=== PATIENT | male | born 1990 | race Two or more races ===

== ENCOUNTER → 2024-02-10 | Emergency (ER) | payer OTHER ==
[~2024-02-10] VITALS: Ht 185.4 cm; Wt 134.3 kg
[~2024-02-10] MED LIST: CEPHALEXIN750 MG PO; KETO10TA2 PO; PEPCID AC20 MG PO
[2024-02-10 11:47] VITALS: BP 116/80
== END | disposition home or self-care (01) ==
LOC: ER 10:58
DX: L02.519 Cutaneous abscess of unspecified hand (principal)

== ENCOUNTER 2024-03-06 20:31 | Emergency (ER) | payer OTHER ==
[~2024-03-06] VITALS: Ht 185.4 cm; Wt 117.9 kg
[2024-03-06] MEDS ORDERED: KETOROLAC TROMETHAMINE 60 MG VIAL IM ONE (22:45)
[2024-03-06] MEDS ORDERED: DEXAMETHASONE SODIUM PHOSPHATE 4 MG/ML VIAL IM ONE (22:45)
== END 2024-03-07 00:35 | disposition home or self-care (01) ==
LOC: ER 20:33
DX: M54.50 Low back pain, unspecified (principal); B34.9 Viral infection, unspecified; J45.909 Unspecified asthma, uncomplicated
CPT/HCPCS: 36415; 96372; 99282; J1100; J1885

== ENCOUNTER 2024-07-08 15:46 | Emergency (ER) | payer OTHER ==
[~2024-07-08] VITALS: Ht 185.4 cm; Wt 145.1 kg
[2024-07-08] MEDS ORDERED: IPRATROPIUM/ALBUTEROL SULFATE 3 ML AMPUL.NEB IH SCH (18:15)
[2024-07-08] MEDS ORDERED: METHYLPREDNISOLONE SOD SUCC 125 MG VIAL IV ONE (18:15)
[2024-07-08] MEDS ORDERED: GUAIFENESIN/DEXTROMETHORPHAN 100MG/10ML BLIST.PACK PO ONE ×2 (18:15→18:25)
[2024-07-08] MEDS ORDERED: METHYLPREDNISOLONE SOD SUCC 125 MG VIAL ONE (18:25)
[2024-07-08 19:39] LABS: HEMATOCRIT 49.6 % (39.0-48.0); HEMOGLOBIN 16.9 g/dL (13-16.00); MEAN CELL VOLUME 87.9 fL (80.0-100.00); MEAN CORPUSCULAR HGB CONC 34.1 g/dl (32.0-36.0); PLATELET COUNT 230 K/uL (150-450); RED BLOOD COUNT 5.64 M/uL (4.00-6.00); RED CELL DISTRIBUTION WIDTH 13.4 % (11.5-14.5)
[2024-07-08] MEDS ORDERED: IPRATROPIUM/ALBUTEROL SULFATE 3 ML AMPUL.NEB IH ONE ×2 (20:40→20:41)
[2024-07-08] MEDS ORDERED: SINGULAIR10 MG PO (23:47)
[2024-07-08] MEDS ORDERED: IPRAT-ALBUT 0.5-3 ML IH (23:47)
[2024-07-08] MEDS ORDERED: VENTOLIN HFA18 GM IH (23:47)
[2024-07-08] MEDS ORDERED: AMOX1TAB5 PO (23:47)
== END 2024-07-09 00:44 | disposition home or self-care (01) ==
LOC: ER 15:49
PROVIDERS: General Practice
DX: R53.81 Other malaise (principal); J00 Acute nasopharyngitis [common cold]; Z20.822 Contact with and (suspected) exposure to COVID-19

== ENCOUNTER 2024-07-12 01:26 | Emergency (ER) | payer OTHER ==
[~2024-07-12] VITALS: Ht 185.4 cm; Wt 136.1 kg
[~2024-07-12 01:26] MED LIST changes: +AMOX1TAB5 PO; +IPRAT-ALBUT 0.5-3 ML IH; +SINGULAIR10 MG PO; +VENTOLIN HFA18 GM IH
[2024-07-12] MEDS ORDERED: PROMETHAZINE HCL 25 MG/ML AMPUL IM STA (04:26)
[2024-07-12] MEDS ORDERED: KETOROLAC TROMETHAMINE 60 MG VIAL IM STA (04:26)
[2024-07-12] MEDS ORDERED: HYDROCODONE/CHLORPHEN P-STIREX 5 ML ML PO STA (04:27)
[2024-07-12] MEDS ORDERED: PROMETHAZINE HCL 25 MG/ML AMPUL ONE (04:33)
[2024-07-12] MEDS ORDERED: KETOROLAC TROMETHAMINE 60 MG VIAL IM ONE (04:33)
== END 2024-07-12 04:42 | disposition home or self-care (01) ==
LOC: ER 01:28
DX: J06.9 Acute upper respiratory infection, unspecified (principal)
CPT/HCPCS: 96372; 99282; J1885; J2250

== ENCOUNTER 2024-09-22 09:13 | Emergency (ER) | payer OTHER ==
[~2024-09-22] VITALS: Ht 185.4 cm; Wt 140.6 kg
[2024-09-22 09:47] VITALS: BP 104/70; O2SAT 98
[2024-09-22] MEDS ORDERED: FAMOtidine 10 MG/ML (4ML VIAL) IV PUSH ONE (10:00)
[2024-09-22] MEDS ORDERED: METHYLPREDNISOLONE SOD SUCC 40 MG VIAL IM ONE (10:00)
[2024-09-22] MEDS ORDERED: CETIRIZINE HCL 5 MG/5 ML ML PO ONE (10:00)
[2024-09-22] MEDS ORDERED: MONTELUKAST SODIUM 10 MG TABLET PO ONE (10:00)
[2024-09-22] MEDS ORDERED: CEFTRIAXONE SODIUM 1,000 MG VIAL IM ONE (10:00)
[2024-09-22] MEDS ORDERED: FAMOTIDINE/PF 20 MG/2 ML VIAL ONE (10:14)
[2024-09-22] MEDS ORDERED: CEFTRIAXONE SODIUM 1,000 MG VIAL ONE (10:14)
[2024-09-22] MEDS ORDERED: METHYLPREDNISOLONE SOD SUCC 40 MG VIAL ONE (10:14)
[2024-09-22] MEDS ORDERED: CETIRIZINE HCL 5MG/5ML BLIST.PACK PO ONE (10:14)
[2024-09-22] MEDS ORDERED: LIDOCAINE HCL 1% 10ML VIAL ONE (10:19)
[2024-09-22 11:00] LABS: BASO % 0.4 % (0.1-1.2); EOS # 0.45 (0.04-0.54); EOS % 3.2 % (0.7-7.0); HEMATOCRIT 47.1 % (40.1-51.0); HEMOGLOBIN 16.2 g/dL (13.7-17.5); LYMPH % 22.9 % (19.3-53.1); MEAN CORPUSCULAR HEMOGLOBIN 29.4 pg (25.6-32.2); MONO # 0.79 (0.24-0.82); MONO % 5.7 % (4.7-12.5); NEUT # 9.39 (1.56-6.13); NEUT % 67.3 % (34.0-71.1); PLATELET COUNT 284 K/uL (163-369); RED BLOOD COUNT 5.51 M/uL (4.63-6.08); RED CELL DISTRIBUTION WIDTH 13.3 % (11.6-14.4)
[2024-09-22 11:39] LABS: COVID-19 AG NEGATIVE (NEGATIVE)
[2024-09-22 11:40] LABS: INFLUENZA A AG NEGATIVE (NEGATIVE); INFLUENZA B AG NEGATIVE (NEGATIVE)
[2024-09-22] MEDS ORDERED: AZITHROMYCIN500 MG PO (11:45)
[2024-09-22] MEDS ORDERED: BENZONATATE200 M1 PO (11:45)
== END 2024-09-22 12:04 | disposition home or self-care (01) ==
LOC: ER 09:23
PROVIDERS: General Practice
DX: J02.9 Acute pharyngitis, unspecified (principal); Z20.822 Contact with and (suspected) exposure to COVID-19; Z87.09 Personal history of other diseases of the respiratory system

== ENCOUNTER 2024-12-10 08:28 | Emergency (ER) | payer OTHER ==
[~2024-12-10] VITALS: Ht 185.4 cm; Wt 158.8 kg
[~2024-12-10 08:28] MED LIST changes: +AZITHROMYCIN500 MG PO; +BENZONATATE200 M1 PO
[2024-12-10 10:47] LABS: COVID-19 AG NEGATIVE (NEGATIVE)
[2024-12-10 11:01] LABS: BASO % 0.5 % (0.1-1.2); EOS # 0.46 (0.04-0.54); EOS % 3.0 % (0.7-7.0); LYMPH # 2.72 (1.18-3.74); LYMPH % 17.9 % (19.3-53.1); MEAN PLATELET VOLUME 10.70 fl (9.4-12.4); MONO # 0.84 (0.24-0.82); MONO % 5.5 % (4.7-12.5); NEUT # 11.01 (1.56-6.13); NEUT % 72.4 % (34.0-71.1); RED CELL DISTRIBUTION WIDTH 13.0 % (11.6-14.4)
== END 2024-12-10 11:53 ==
LOC: ER 08:28
PROVIDERS: General Practice
DX: B34.9 Viral infection, unspecified (principal); J45.909 Unspecified asthma, uncomplicated; J03.80 Acute tonsillitis due to other specified organisms; J01.00 Acute maxillary sinusitis, unspecified; Z20.822 Contact with and (suspected) exposure to COVID-19

== ENCOUNTER 2024-12-21 10:53 | Emergency (ER) | payer OTHER ==
[~2024-12-21] VITALS: Ht 185.4 cm; Wt 158.8 kg
[2024-12-21] MEDS ORDERED: KETOROLAC TROMETHAMINE 30 MG VIAL IM STA (13:10)
[2024-12-21] MEDS ORDERED: KETOROLAC TROMETHAMINE 30 MG VIAL ONE (13:27)
[2024-12-21 13:42] VITALS: BP 138/81; O2SAT 98
== END 2024-12-21 13:43 | disposition home or self-care (01) ==
LOC: ER 10:53
DX: D23.62 Other benign neoplasm of skin of left upper limb, including shoulder (principal); J45.909 Unspecified asthma, uncomplicated